=== PATIENT | male | born 1975 | race Caucasian/White ===

== ENCOUNTER 2021-04-04 22:52 | Emergency (ER) | payer SELFPAY ==
[2021-04-04 23:00] VITALS: BP 151/97; PULSE 110; RESP 18; TEMP 36.9; O2SAT 99; BMI 34.9
--- NOTE | 2021-04-04 23:04 | ECG_ITS ---
[facility] Test Date: 2021-04-04 Pat Name: Darin Yen Sr Department: Room: Gender: Male [employer]: : 1975 Requested By: Preston Sheikh Order Number: [id number] Jeanie MD: Rod Aparicio M.D. Measurements Intervals [place] Rate: 87 P: 64 OK: 130 QRS: 37 QRSD: 94 T: 32 QT: 357 QTc: 431 Interpretive Statements SINUS RHYTHM No previous ECG available for comparison Electronically Signed On 04-07-2021 13:23:14 TOW OPERATOR by Rod Aparicio M.D. [email or web address]
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
[2021-04-04 23:31] VITALS: BP 140/95; PULSE 98; RESP 19; O2SAT 97
[2021-04-05 00:04] VITALS: BP 122/88; PULSE 85; RESP 19; O2SAT 97
--- NOTE | 2021-04-05 00:12 | W.ED.EXTPRO ---
HPI - Extremity Problem General: Chief complaint: Extremity Problem,Nontraumatic Stated complaint: LEG/BACK/ANKLE PAIN Time Seen by Provider: 04/04/21 22:57 Source: patient, EMS and police Mode of arrival: EMS Limitations: no limitations History of Present Illness: HPI Narrative: 45-year-old male is here from [place] stating he is having some pain in his left leg states he is having redness to his left foot along with some pain in his left posterior knee and up his left thigh he is concerned he may have a blood clot he denies any fever he states pain sharp in nature rates it a 7 out of 10. Denies any difficulty walking denies any vomiting or diarrhea. Denies any testicle or abdominal pain. Associated symptoms: Deny chest pain, fever(s) or rash Review of Systems Const: Denies: fever(s), chills, body aches or change in appetite Eyes: Denies: blurry vision or eye discomfort ENMT: Denies: throat pain or dental pain Card: Denies: chest pain Resp: Denies: dyspnea GI: Denies: abdominal pain, nausea, vomiting or diarrhea : Denies: dysuria Musc: Reports: extremity pain Skin/Breast: Denies: rash Neuro: Denies: headache(s) Psych: Denies: depression Elmer/Lymph: Denies: easy bruising All/Imm: Denies: urticaria Physical Exam Const: COMMON NORMALS: no acute distress, patient oriented x3 and healthy appearing HENMT: COMMON NORMALS: normocephalic and atraumatic HEAD & SCALP: normocephalic and atraumatic Eye: COMMON NORMALS: Equal, round and reactive pupils present and EOMs intact bilaterally PUPIL: Yes Equal, round and reactive pupils present Neck/C-Spine: COMMON NORMALS: full ROM and supple Chest: COMMONS NORMALS: normal inspection of the chest and normal palpation of entire chest wall Resp: COMMON NORMALS: normal respiratory effort, No retractions, No use of accessory muscles and clear to auscultation bilaterally AUSCULTATION: clear to auscultation bilaterally Cardio: COMMON NORMALS: regular rate, regular rhythm and No murmurs present (Cardio) RATE: regular rate RHYTHM: regular rhythm GI: COMMON NORMALS: Normal to inspection, nondistended, normoactive bowel sounds present, Soft to palpation, non-tender and no masses PALPATION: Yes Soft to palpation Extremity: COMMON NORMALS: normal to inspection and full ROM NARRATIVE EXTREMITY EXAM: Does have some tenderness to the left thigh and posterior fossa to the left knee distal pulses intact no decrease sensation no swelling noted slight erythema to the left foot over the dorsum with no streaking Neuro: COMMON NORMALS: patient oriented x3, moves all extremities and no focal motor deficits Psych: COMMON NORMALS: mental status grossly normal, Normal thought process present and cooperative THOUGHT PROCESS: Normal thought process present Skin: COMMON NORMALS: no rashes or lesions noted and no wounds GENERAL SKIN EXAM: no rashes or lesions noted Course Vital Signs: Vital signs: Vital Signs Temperature 98.5 F 04/04/21 23:00 Pulse Rate 69 04/05/21 01:34 Respiratory Rate 18 04/05/21 01:38 Blood Pressure 121/67 04/05/21 01:34 Pulse Oximetry 97 04/05/21 01:38 MDM - Extremity (Nontraumatic) MDM Narrative: Medical decision making narrative: Patient presents with a cellulitis to his left foot he has no signs of osteomyelitis or necrotizing fasciitis ultrasound here showed no signs of DVT we will start patient on Keflex please take ibuprofen for pain he is to watch for any increased fevers or streaking return if worsening patient understands agrees to plan Lab Data: Labs: Lab Results 04/05/21 04/05/21 00:29 00:29 WBC 15.3 10^3/uL H 10 ^3/uL (4.0-10.0) RBC 5.28 10^6/uL 10^6 /uL (4.1-5.3) Hgb 15.8 g/dL g/dL (11.7-16.6) Hct 46.8 % % (42.0-52.0) MCV 88.6 fl fl (80-94) MCH 29.9 pg pg (28.0-34.0) MCHC 33.8 g/dL g/dL (30.0-36.0) RDW 12.7 % % (12.1-15.1) Plt Count 261 10^3/cmm 10^3 /cmm (130-400) MPV 9.4 fL fL (7.4-10.4) Neut % (Auto) 79.6 % % Lymph % (Auto) 10.4 % % [place] % (Auto) 8.7 % % Eos % (Auto) 0.3 % % Baso % (Auto) 0.5 % % Neut # (Auto) 12.20 10^3/uL H 1 0^3/uL (1.8-7.7) Lymph # (Auto) 1.6 10^3/uL 10^3/ uL (0.8-4.8) [place] # (Auto) 1.3 10^3/uL H 10^ 3/uL (0.2-0.9) Eos # (Auto) 0.1 10^3/uL 10^3/ uL (0.0-0.8) Baso # (Auto) 0.1 10^3/uL 10^3/ uL (0.0-0.1) Nucleated RBC % (a uto) 0 % % Nucleated RBCs # 0.0 /100WBC /100W BC Sodium 137 mmol/L mmol/L (136-145) Potassium 3.7 mmol/L mmol/L (3.5-5.1) Chloride 102 mmol/L mmol/L (98-107) Carbon Dioxide 22 mmol/L mmol/L (22-29) Anion Gap 16.7 (5-19) BUN 11 mg/dL mg/dL (6-20) Creatinine 1.0 mg/dL mg/dL (0.7-1.2) GFR Calculation 81.6 mL/min L mL/ min (90-130) Glucose 96 mg/dL mg/dL (65-115) Calculated Osmolal ity 283 mOsm/kg L mOs m/kg (285-295) Calcium 8.6 mg/dL mg/dL (8.5-10.5) Total Bilirubin 0.3 mg/dL mg/dL (0.15-1.2) AST 17 U/L U/L (0-40) ALT 20 U/L U/L (0-41) Alkaline Phosphata se 82 IU/L IU/L (40-130) Total Protein 6.5 g/dL L g/dL (6.6-8.7) Albumin 4.1 g/dL g/dL (3.5-5.2) Globulin 2.4 g/dL g/dL (1.3-4.6) Discharge Plan Discharge Patient Disposition: Home Clinical Impression: Cellulitis Qualifiers: Site of cellulitis: extremity Site of cellulitis of extremity: lower extremity Laterality: left Qualified Code(s): L03.116 - Cellulitis of left lower limb Condition: Stable Prescriptions: New cephalexin 500 mg capsule 500 mg PO QID 7 Days Qty: 28 RF: 0 ibuprofen 800 mg tablet 800 mg PO Q8H PRN (Reason: pain) Qty: 20 RF: 0 Discharge Orders: Discharge ED (Routine); Ordered 04/05/21 Ordered By: Preston Sheikh Discharge Diet: Advance as tolerated Discharge Activity: Resume usual activity Patient Instructions: Cellulitis (ED) Coding Level of Care Code ED Director Of Medical Staff Services for Danilo Fwd Exam Comprehensive
[2021-04-05 00:34] LABS: Basophils # 0.1 10^3/uL (0.0-0.1); Basophils % 0.5 %; Eosinophils # 0.1 10^3/uL (0.0-0.8); Eosinophils % 0.3 %; Hematocrit 46.8 % (42.0-52.0); Hemoglobin 15.8 g/dL (11.7-16.6); Lymphocytes # 1.6 10^3/uL (0.8-4.8); Lymphocytes % 10.4 %; Mean Corpuscular HGB Conc 33.8 g/dL (30.0-36.0); Mean Corpuscular Hemoglobin 29.9 pg (28.0-34.0); Mean Corpuscular Volume 88.6 fl (80-94); Mean Platelet Volume 9.4 fL (7.4-10.4); Monocytes # 1.3 10^3/uL (0.2-0.9); Monocytes % 8.7 %; Neutrophils % 79.6 %; Nucleated Red Blood Cells % 0 %; Platelet Count 261 10^3/cmm (130-400); Red Blood Count 5.28 10^6/uL (4.1-5.3); Red Cell Distribution Width 12.7 % (12.1-15.1); White Blood Count 15.3 10^3/uL (4.0-10.0)
[2021-04-05 00:55] LABS: Alanine Aminotransferase 20 U/L (0-41); Albumin Level 4.1 g/dL (3.5-5.2); Alkaline Phosphatase 82 IU/L (40-130); Anion Gap 16.7 (5-19); Aspartate Amino Transferase 17 U/L (0-40); Blood Urea Nitrogen 11 mg/dL (6-20); Calcium 8.6 mg/dL (8.5-10.5); Carbon Dioxide 22 mmol/L (22-29); Chloride 102 mmol/L (98-107); Globulin 2.4 g/dL (1.3-4.6); Glomerular Filtration Rate 81.6 mL/min (90-130); Glucose 96 mg/dL (65-115); Osmolality Calculated 283 mOsm/kg (285-295); Potassium 3.7 mmol/L (3.5-5.1); Sodium 137 mmol/L (136-145); Total Bilirubin 0.3 mg/dL (0.15-1.2); Total Protein 6.5 g/dL (6.6-8.7)
[2021-04-05 01:34] VITALS: BP 121/67; PULSE 69; RESP 18; O2SAT 97
[2021-04-05 01:38] VITALS: RESP 18; O2SAT 97
[2021-04-05] MEDS: morphine 4 mg/mL SDV 1 mL IVP (01:38)
[2021-04-05] MEDS: ondansetron 2 mg/ML SDV 2 mL 4 MG IVP (01:38)
[2021-04-05] MEDS: cephALEXin 500 mg Capsule PO (01:47)
--- NOTE | 2021-04-05 23:04 | USR_ITS ---
PROCEDURE INFORMATION: Exam: US Duplex Left Lower Extremity Veins, Limited Exam date and time: 04/05/2021 11:04 PM Age: 45 years old Clinical indication: Pain; Leg, lower; Left; Additional info: Leg pain TECHNIQUE: Imaging protocol: Real-time Duplex ultrasound of the Left Lower Extremity with 2-D gonzalez scale, color Doppler flow and spectral waveform analysis with image documentation. Limited exam focused on the left lower extremity veins. COMPARISON: No relevant prior studies available. FINDINGS: Left deep veins: Unremarkable. The common femoral, femoral, proximal profunda femoral and popliteal veins are patent without thrombus. Normal Doppler waveforms. Normal compressibility and/or augmentation response. Calf veins are patent. Left superficial veins: Unremarkable. Saphenofemoral junction is patent without thrombus. Soft tissues: Unremarkable. US/CV venous duplex [facility] [id number] IMPRESSION: No evidence of left lower extremity deep vein thrombosis. Radiation Dose CTDIVOL = (mGy): DLP = (mGy-cm)
== END 2021-04-05 01:51 | disposition home or self-care (01) ==
PROVIDERS: Emergency Provider Emergency Medicine
DX: L03.116 Cellulitis of left lower limb (principal)
CPT/HCPCS: 71045; 80053; 85025; 93005; 93971; 96374; 96375; 99284; J2270; J2405